=== PATIENT | female | born 1950 | race Caucasian/White ===

== ENCOUNTER 2019-02-20 16:18 | Emergency (ER) | payer OTHER ==
[~2019-02-20] VITALS: Ht 165.1 cm; Wt 72.6 kg
[2019-02-20] MEDS ORDERED: GLIPIZIDE5 MG (16:54)
== END 2019-02-20 20:03 | disposition home or self-care (01) ==
LOC: ER 16:18
DX: S91.241A Puncture wound with foreign body of right great toe with damage to nail, initial encounter (principal); W22.8XXA Striking against or struck by other objects, initial encounter; Y93.89 Activity, other specified; Y92.59 Other trade areas as the place of occurrence of the external cause; Y99.8 Other external cause status